=== PATIENT | female | born 1980 | race Caucasian/White ===

== ENCOUNTER 2023-01-27 12:55 | Emergency (ER) | payer OTHER, SELFPAY ==
[2023-01-27 12:58] VITALS: BP 142/87; PULSE 92; RESP 20; TEMP 36.9; O2SAT 100
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
[2023-01-27] MEDS: oxyCODONE 5 mg/Acetaminophen 325 mg TAB 1 TAB PO (14:54)
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
== END 2023-01-27 15:10 | disposition home or self-care (01) ==
PROVIDERS: Emergency Provider Physician Assistant
DX: S52.601A Unspecified fracture of lower end of right ulna, initial encounter for closed fracture (principal); V18.0XXA Pedal cycle driver injured in noncollision transport accident in nontraffic accident, initial encounter
CPT/HCPCS: 29125; 99284; 71046; 73090